=== PATIENT | male | born 1970 | race Caucasian/White ===

== ENCOUNTER 2019-02-16 16:10 | Emergency (ER) | payer BC ==
[~2019-02-16] VITALS: Ht 165.1 cm; Wt 86.2 kg
[2019-02-16 16:22] VITALS: Ht 165.1 cm; Wt 86.2 kg
[2019-02-16 19:00] VITALS: BP 137/90
== END 2019-02-16 19:00 | disposition home or self-care (01) ==
LOC: ED 16:10
DX: I82.461 Acute embolism and thrombosis of right calf muscular vein (principal); I82.451 Acute embolism and thrombosis of right peroneal vein; I10 Essential (primary) hypertension